=== PATIENT | male | born 1950 | race Hispanic/Latino ===

== ENCOUNTER 2021-01-07 07:56 | Day surgery (SDC) | payer OTHER ==
[2021-01-01 12:41] LABS: BASOPHILS % (AUTO) 0.6 % (0.0-5.0); EOSINOPHILS % (AUTO) 3.9 % (0.0-8.0); HEMATOCRIT 38.4 % (42-54); LYMPHOCYTES % (AUTO) 18.7 % (21.0-51.0); MEAN CORPUSCULAR HEMOGLOBIN 28.7 pg (27.0-33.0); MEAN CORPUSCULAR HGB CONC 32.8 g/dL (32.0-36.0); MEAN CORPUSCULAR VOLUME 87.5 fL (79-99); MONOCYTES % (AUTO) 5.4 % (3.0-13.0); NEUTROPHILS % (AUTO) 71.1 % (40.0-77.0); PLATELET COUNT (AUTO) 225 K/uL (130-400); RED BLOOD CELL COUNT(AUTO) 4.39 MIL/uL (4.50-6.20); RED CELL DISTRIBUTION WIDTH 13.6 % (11.0-15.5); WHITE BLOOD COUNT (AUTO) 6.5 K/uL (4.8-10.8)
[2021-01-01 13:10] LABS: CREATININE 2.2 mg/dL (0.5-1.5); INR 0.95 (0.85-1.15); POTASSIUM 4.6 mmol/L (3.5-5.1); PROTHROMBIN TIME 10.4 SEC (9.6-11.6)
[2021-01-01 13:12] LABS: PARTIAL THROMBOPLASTIN TIME 28.3 SEC (26.3-35.5)
[2021-01-01 13:35] LABS: APPEARANCE,URINE CLOUDY (CLEAR); BILIRUBIN,URINE NEGATIVE (NEGATIVE); COLOR,URINE YELLOW (YELLOW); GLUCOSE, URINE (UA) NEGATIVE (NEGATIVE); KETONES,URINE NEGATIVE (NEGATIVE); LEUKOCYTE ESTERASE ,URINE MODERATE (NEGATIVE); NITRATE,URINE POSITIVE (NEGATIVE); OCCULT BLOOD,URINE LARGE (NEGATIVE); PH,URINE 5.5 (5.0-8.0); PROTEIN,URINE 100 mg/dL (NEGATIVE); UROBILINOGEN,URINE 0.2 mg/dL (0.2-1.0)
[2021-01-01 13:46] LABS: RBC,URINE 51-100 /HPF (0-1); WBC,URINE >100 /HPF (0-1)
[2021-01-01 13:47] LABS: BACTERIA,URINE Few /HPF (None Seen)
[2021-01-01 13:48] LABS: AMORPHOUS SEDIMENT,UR Few /LPF (None Seen); RENAL EPITHELIAL CELLS,URINE Few /HPF (None Seen); SQUAMOUS EPITHELIAL CELL,UR Rare /HPF (0-2)
[2021-01-04 14:53] VITALS: BP 175/99
[~2021-01-07] VITALS: Ht 172.7 cm; Wt 75.6 kg
[2021-01-07] VITALS (15 sets, daily range): BP systolic 164–182; BP diastolic 81–106
[~2021-01-07 07:56] MED LIST: CEFTRIAXONE SODIUM 1 GM IVP SCH; GENTAMICIN 80 MG/NS 100 ML PB 100 ML IV SCH; LEVO500T89 PO
[2021-01-07] MEDS ORDERED: LACTATED RINGERS 1000ML 1,000 ML IV ONE (08:40)
[2021-01-07] MEDS ORDERED: LIDOCAINE PF 2% 5ML ABBOJECT ONE (09:08)
[2021-01-07] MEDS ORDERED: ONDANSETRON HCL 4 MG/2 ML VIAL ONE (09:08)
[2021-01-07] MEDS ORDERED: DEXAMETHASONE SOD PHOSPHATE 10MG/ML 1ML VIAL ONE (09:08)
[2021-01-07] MEDS ORDERED: MIDAZOLAM HCL 1 MG/ML 2ML VIAL ONE (09:08)
[2021-01-07] MEDS ORDERED: NEOSTIGMINE 5MG/5ML SYR IV ONE (09:09)
[2021-01-07] MEDS ORDERED: FENTANYL CITRATE PF 50 MCG/1 ML 2ML VIAL ONE (09:09)
[2021-01-07] MEDS ORDERED: GLYCOPYRROLATE 1 MG/5 ML SYRINGE ONE (09:09)
[2021-01-07] MEDS ORDERED: PROPOFOL 10 MG/ML 20ML VIAL IV ONE (09:09)
== END 2021-01-07 13:00 | disposition home or self-care (01) ==
LOC: DAH 07:56
PROVIDERS: ATTEND Urology
DX: D29.1 Benign neoplasm of prostate (principal); Z20.822 Contact with and (suspected) exposure to COVID-19; N26.1 Atrophy of kidney (terminal); Z79.01 Long term (current) use of anticoagulants; N18.9 Chronic kidney disease, unspecified; Z79.899 Other long term (current) drug therapy; Z98.890 Other specified postprocedural states
CPT/HCPCS: 36415; 52648; 71045; 80048; 81001; 84153; 84154; 85025; 85610; 85730; 87077; 87088; 87186; 93005; A4215; A4221; A4222; A4223; A4354; A4358; A4600; A4663; A6260; C1758; C9803; J0696; J1100; J1580; J2001; J2250; J2405; J2704; J2710; J3010; J3490; J7030; J7120; U0003

== ENCOUNTER → 2021-02-16 | Outpatient (CLI) | payer OTHER ==
[~2021-02-16] MED LIST changes: -CEFTRIAXONE SODIUM 1 GM IVP SCH; -GENTAMICIN 80 MG/NS 100 ML PB 100 ML IV SCH
== END | disposition home or self-care (01) ==
LOC: RAH 15:35
PROVIDERS: ATTEND Internal Medicine
DX: R33.9 Retention of urine, unspecified (principal)
CPT/HCPCS: 76770

== ENCOUNTER 2021-09-08 08:39 | Observation (INO) | payer OTHER ==
[2021-09-07 12:22] LABS: BASOPHILS % (AUTO) 0.5 % (0.0-5.0); EOSINOPHILS % (AUTO) 0.8 % (0.0-8.0); HEMATOCRIT 43.9 % (42-54); LYMPHOCYTES % (AUTO) 19.4 % (21.0-51.0); MEAN CORPUSCULAR HGB CONC 32.3 g/dL (32.0-36.0); MEAN CORPUSCULAR VOLUME 86.6 fL (79-99); MONOCYTES % (AUTO) 4.2 % (3.0-13.0); NEUTROPHILS % (AUTO) 74.4 % (40.0-77.0); PLATELET COUNT (AUTO) 276 K/uL (130-400); RED BLOOD CELL COUNT(AUTO) 5.07 MIL/uL (4.50-6.20); RED CELL DISTRIBUTION WIDTH 13.2 % (11.0-15.5); WHITE BLOOD COUNT (AUTO) 6.1 K/uL (4.8-10.8)
[2021-09-07 12:33] LABS: INR 0.95 (0.85-1.15); PROTHROMBIN TIME 10.4 SEC (9.6-11.6)
[2021-09-07 12:36] LABS: CREATININE 1.8 mg/dL (0.5-1.5); POTASSIUM 4.2 mmol/L (3.5-5.1)
[2021-09-07 12:37] VITALS: BP 198/113
[2021-09-07 12:42] LABS: APPEARANCE,URINE CLOUDY (CLEAR); BILIRUBIN,URINE NEGATIVE (NEGATIVE); COLOR,URINE YELLOW (YELLOW); GLUCOSE, URINE (UA) NEGATIVE (NEGATIVE); KETONES,URINE NEGATIVE (NEGATIVE); LEUKOCYTE ESTERASE ,URINE MODERATE (NEGATIVE); NITRATE,URINE POSITIVE (NEGATIVE); OCCULT BLOOD,URINE TRACE-INTACT (NEGATIVE); PROTEIN,URINE NEGATIVE (NEGATIVE); UROBILINOGEN,URINE 0.2 mg/dL (0.2-1.0)
[2021-09-07 12:54] LABS: BACTERIA,URINE Many /HPF (None Seen); RBC,URINE 0-1 /HPF (0-1); WBC,URINE 26-50 /HPF (0-1)
[~2021-09-08] VITALS: Ht 172.7 cm; Wt 79.0 kg
[2021-09-08] VITALS (23 sets, daily range): BP systolic 98–188; BP diastolic 70–105
[2021-09-08] MEDS: CEFAZOLIN SODIUM 1 GM VIAL IVP ONE ×2 (08:00→15:10)
[~2021-09-08 08:39] MED LIST changes: +FOLI1TAB85 PO; -LEVO500T89 PO; +LEVOFLOXACIN 500 MG/D5W 100 ML 100 ML IV PRN; +LISI30TA4 PO; +OMEG-178 PO
[2021-09-08] MEDS ORDERED: LACTATED RINGERS 1000ML 1,000 ML IV ONE (10:34)
[2021-09-08] MEDS ORDERED: CEFAZOLIN SODIUM 1 GM VIAL ONE ×2 (10:34→14:19)
[2021-09-08] MEDS ORDERED: ACETAMINOPHEN 500 MG TABLET ONE (13:17)
[2021-09-08] MEDS ORDERED: CELECOXIB 200 MG CAP ONE (13:17)
[2021-09-08] MEDS ORDERED: METOCLOPRAMIDE 10 MG/2 ML VIAL ONE (13:17)
[2021-09-08] MEDS ORDERED: PROPOFOL 10 MG/ML 20ML VIAL IV ONE (13:50)
[2021-09-08] MEDS ORDERED: LIDOCAINE PF 100MG/5ML (2%) SYRINGE 5ML ONE (13:50)
[2021-09-08] MEDS ORDERED: SUCCINYLCHOLINE CHLORIDE 20 MG/ML 10 ML VIAL ONE (13:50)
[2021-09-08] MEDS ORDERED: ROCURONIUM 10MG/1ML SYR 10 MG/ML ML ONE ×2 (13:51→15:32)
[2021-09-08] MEDS ORDERED: ROPIVACAINE 0.5% 5MG/ML 30ML IJ ONE (13:54)
[2021-09-08] MEDS ORDERED: TRANEXAMIC ACID 1000MG/10ML ONE ×2 (14:18→17:14)
[2021-09-08] MEDS ORDERED: MIDAZOLAM HCL 1 MG/ML 2ML VIAL ONE (14:38)
[2021-09-08] MEDS ORDERED: DEXAMETHASONE SOD PHOSPHATE 10MG/ML 1ML VIAL ONE (14:39)
[2021-09-08] MEDS ORDERED: FENTANYL CITRATE PF 50 MCG/1 ML 2ML VIAL ONE ×2 (14:39→15:32)
[2021-09-08] MEDS ORDERED: EPHEDRINE SULFATE 50 MG/ML AMPULE ONE (15:15)
[2021-09-08] MEDS ORDERED: GLYCOPYRROLATE 1 MG/5 ML SYRINGE ONE ×2 (15:46→16:50)
[2021-09-08] MEDS ORDERED: LABETALOL 20MG VIAL IV ONE (16:05)
[2021-09-08] MEDS ORDERED: HYDRALAZINE 20MG/ML VIAL ONE (16:20)
[2021-09-08] MEDS ORDERED: ONDANSETRON 4MG INJ ONE (16:50)
[2021-09-08] MEDS ORDERED: NEOSTIGMINE 5MG/5ML SYR IV ONE (16:50)
[2021-09-08] MEDS ORDERED: OXYCODONE HCL 5 MG TAB PO PRN (17:00)
[2021-09-08] MEDS ORDERED: DiphenhydrAMINE HCL 50 MG/ML VIAL IVP PRN (17:00)
[2021-09-08] MEDS ORDERED: FERROUS FUMARATE 324 MG TABLET PO PRN (17:00)
[2021-09-08] MEDS ORDERED: LIDOCAINE HCL-MPF 1% 2ML VIAL IV PRN (17:00)
[2021-09-08] MEDS ORDERED: POTASSIUM CHLORIDE 10% ELIXIR 20 MEQ/15 ML UDCUP PO PRN (17:00)
[2021-09-08] MEDS ORDERED: ONDANSETRON 4MG INJ IVP PRN (17:00)
[2021-09-08] MEDS: ACETAMINOPHEN 500 MG TABLET PO SCH (17:00)
[2021-09-08] MEDS ORDERED: POTASSIUM CHLORIDE 20MEQ/100ML 100 ML IV PRN (17:00)
[2021-09-08] MEDS ORDERED: TRAMADOL HCL 50 MG TABLET PO PRN (17:00)
[2021-09-08] MEDS: 0.9%NACL 1000ML 1,000 ML IV SCH (17:00)
[2021-09-08] MEDS ORDERED: KCL 20 MEQ ERTAB PO PRN (17:00)
[2021-09-08] MEDS ORDERED: CALCIUM CARB 500MG PO PRN (17:00)
[2021-09-08] MEDS ORDERED: TEMAZEPAM 15 MG CAPSULE PO PRN (17:00)
[2021-09-08] MEDS: FAMOTIDINE 20MG TAB PO SCH (17:24)
[2021-09-08] MEDS ORDERED: MEPERIDINE-PF 25 MG/ML SYG ONE ×2 (17:35→17:45)
[2021-09-08] MEDS: CELECOXIB 200 MG CAP PO SCH (20:42)
[2021-09-08] MEDS: Vitamin B Complex/Vit C/Folic Acid PO SCH (20:42)
[2021-09-08] MEDS: PREGABALIN 25 MG CAP PO SCH (20:42)
[2021-09-08] MEDS: ASPIRIN 81 MG EC TAB PO SCH (20:42)
[2021-09-08] MEDS: OXYCODONE HCL 5 MG TAB PO PRN (20:43)
[2021-09-08] MEDS: CEFAZOLIN SODIUM 1 GM VIAL IVP SCH (21:45)
[2021-09-09] VITALS (7 sets, daily range): BP systolic 118–185; BP diastolic 77–98
[2021-09-09] MEDS: ACETAMINOPHEN 500 MG TABLET PO SCH ×3 (00:31→17:57)
[2021-09-09] MEDS: 0.9%NACL 1000ML 1,000 ML IV SCH ×2 (03:00→13:00)
[2021-09-09 05:41] LABS: MEAN CORPUSCULAR HEMOGLOBIN 28.4 pg (27.0-33.0); MEAN CORPUSCULAR HGB CONC 32.8 g/dL (32.0-36.0); MEAN CORPUSCULAR VOLUME 86.7 fL (79-99); RED BLOOD CELL COUNT(AUTO) 4.15 MIL/uL (4.50-6.20); RED CELL DISTRIBUTION WIDTH 13.2 % (11.0-15.5)
[2021-09-09 06:03] LABS: POTASSIUM 4.7 mmol/L (3.5-5.1)
[2021-09-09] MEDS: CEFAZOLIN SODIUM 1 GM VIAL IVP SCH (06:03)
[2021-09-09] MEDS: PREGABALIN 25 MG CAP PO SCH ×2 (10:11→20:33)
[2021-09-09] MEDS: POLYETHYLENE GLYCOL 3350 17 GM POWD.PACK PO SCH (10:11)
[2021-09-09] MEDS: FAMOTIDINE 20MG TAB PO SCH (10:12)
[2021-09-09] MEDS: FISH OIL 1000 MG/CAP PO SCH (10:16)
[2021-09-09] MEDS: LISINOPRIL 10 MG TABLET PO SCH (10:16)
[2021-09-09] MEDS: CELECOXIB 200 MG CAP PO SCH ×2 (10:16→20:33)
[2021-09-09] MEDS: ASPIRIN 81 MG EC TAB PO SCH ×2 (10:17→20:33)
[2021-09-09] MEDS: OXYCODONE HCL 5 MG TAB PO PRN ×2 (20:32→22:34)
[2021-09-09] MEDS: Vitamin B Complex/Vit C/Folic Acid PO SCH (20:33)
[2021-09-10] VITALS: BP 186/97
[2021-09-10] MEDS: ACETAMINOPHEN 500 MG TABLET PO SCH ×2 (01:00→08:36)
[2021-09-10 04:00] VITALS: BP 163/98
[2021-09-10 07:33] VITALS: BP 141/55
[2021-09-10] MEDS: FISH OIL 1000 MG/CAP PO SCH (08:36)
[2021-09-10] MEDS: FAMOTIDINE 20MG TAB PO SCH (08:36)
[2021-09-10] MEDS: CELECOXIB 200 MG CAP PO SCH (08:36)
[2021-09-10] MEDS: ASPIRIN 81 MG EC TAB PO SCH (08:36)
[2021-09-10] MEDS: PREGABALIN 25 MG CAP PO SCH (08:36)
[2021-09-10] MEDS: OXYCODONE HCL 5 MG TAB PO PRN (08:36)
[2021-09-10] MEDS: POLYETHYLENE GLYCOL 3350 17 GM POWD.PACK PO SCH (08:37)
[2021-09-10] MEDS: LISINOPRIL 10 MG TABLET PO SCH (08:37)
[2021-09-10 10:50] VITALS: BP 155/68
[2021-09-10] MEDS ORDERED: HYDR-4060 PO (16:36)
[2021-09-10] MEDS ORDERED: AEC81 PO (16:36)
[2021-09-10 16:46] VITALS: BP 155/71
[2021-09-11] MEDS ORDERED: BISACODYL 10 MG SUPP.RECT RC PRN (17:00)
== END 2021-09-10 18:25 ==
LOC: DAH 08:39 → DAHIP 08:40 → DAH 08:40 → 4BH 18:11
PROVIDERS: ADMIT Orthopaedic Surgery; ATTEND Orthopaedic Surgery
DX: M17.12 Unilateral primary osteoarthritis, left knee (principal); Z20.822 Contact with and (suspected) exposure to COVID-19; G89.29 Other chronic pain; M25.562 Pain in left knee; I12.9 Hypertensive chronic kidney disease with stage 1 through stage 4 chronic kidney disease, or unspecified chronic kidney disease; N18.9 Chronic kidney disease, unspecified; Z79.899 Other long term (current) drug therapy; Z98.890 Other specified postprocedural states
CPT/HCPCS: 27447; 36415 ×2; 64447; 76942; 80048 ×2; 81001; 85025; 85027; 85610; 87077; 87088; 87186; 87635; 87641; 93005; 96365; 96375; 96376; 97039 ×3; 97116 ×4; 97161; 97530 ×4; A4215; A4216; A4221; A4222; A4223 ×2; A4600; A4649 ×5; A4663; A4930 ×3; A5120; A9272; C1776; C9803; G0378 ×49; J0330; J0360; J0690 ×4; J1100; J1956; J2001; J2175 ×2; J2250; J2405; J2704; J2710; J2765; J2795; J3010 ×2; J3490 ×6; J7120